=== PATIENT | male | born 1960 | race Caucasian/White ===

== ENCOUNTER 2022-12-27 11:34 | Outpatient (OUT) | payer OTHER, SELFPAY ==
--- NOTE | 2022-12-27 | XR_ITS ---
The [address] [address] Patient Name: LASHA DOWNS MRN: [id number] date: 1960 Sex: M Assigned Patient Location: RAD Current Patient Location: [facility] Accession/Order Number: [id number] Exam Date: 12/27/2022 11:40 Report Date: 12/27/2022 13:10 At the request of: EMILE CHRISTIANSEN Procedure: XR chest 2V EXAM: XR chest 2V HISTORY: Cough, chest pain ,SOB COMPARISON: None. TECHNIQUE: PA and lateral views of the chest. FINDINGS: The cardiomediastinal silhouette is normal. No focal consolidation is identified. There is no pneumothorax. No pleural effusion is noted. The osseous structures are intact. XR/XR chest 2V IMPRESSION: No acute cardiopulmonary process. Electronically authenticated by: LASHA DOMINGO Date: 12/27/2022 13:10
== END 2022-12-27 11:35 | disposition home or self-care (01) ==
LOC: RAD 11:34
PROVIDERS: PCP Nurse Practitioner; Visit Provider Nurse Practitioner
DX: R05.9 Cough, unspecified (principal); R07.89 Other chest pain; R06.02 Shortness of breath
CPT/HCPCS: 71046